=== PATIENT | female | born 1980 | race Caucasian/White ===

== ENCOUNTER 2018-10-18 08:54 | Inpatient (IN) | payer OTHER, BC, MEDICAID ==
[~2018-10-18] VITALS: Ht 165.1 cm; Wt 103.4 kg
[2018-10-18] MEDS ORDERED: QUET200T PO (09:29)
[2018-10-18] MEDS ORDERED: LORA1TAB3 PO (09:29)
[2018-10-18] MEDS ORDERED: HALO5TAB2 PO (09:29)
[2018-10-18 09:35] LABS: EOSINOPHILS % (AUTO) 1.4 % (1.0-6.0); HEMATOCRIT 35.2 % (36-46); HEMOGLOBIN 11.6 g/dL (12.0-16.0); LYMPHOCYTES # (AUTO) 0.8 K/uL (1.0-4.8); LYMPHOCYTES % (AUTO) 16.9 % (22.0-44.0); MEAN CORPUSCULAR HEMOGLOBIN 27.9 pg (26.0-34.0); MEAN CORPUSCULAR HGB CONC 32.9 G/dL (31.0-37.0); MEAN CORPUSCULAR VOLUME 85 fL (80-100); MONOCYTES # (AUTO) 0.4 K/uL (0.1-1.0); MONOCYTES % (AUTO) 7.5 % (2.0-9.0); NEUTROPHILS # (AUTO) 3.6 K/uL (1.8-7.7); NEUTROPHILS % (AUTO) 73.2 % (40.0-70.0); PLATELET COUNT (AUTO) 313 K/uL (150-450); RED BLOOD CELL COUNT(AUTO) 4.15 MIL/uL (4.00-5.20)
[2018-10-18 09:46] LABS: ANION GAP 7 mmol/L (8-16); CALCIUM, TOTAL 8.5 mg/dL (8.8-10.5); CARBON DIOXIDE 29 mmol/L (22-29); CHLORIDE 102 mmol/L (98-107); CREATININE 1.15 mg/dL (0.60-1.30); GLOMERULAR FILTR. RATE CALC 53 mL/min (>60); GLUCOSE,RANDOM 73 mg/dL (70-110); POTASSIUM 3.7 mmol/L (3.5-5.1); SODIUM SERUM 138 mmol/L (136-145); UREA NITROGEN, BLOOD 18 mg/dL (7-18)
[2018-10-18 09:52] LABS: ALANINE AMINOTRANSFERASE 63 U/L (12-78); ALBUMIN 3.7 g/dL (3.4-5.0); ALKALINE PHOSPHATASE 113 U/L (46-116); ASPARTATE AMINOTRANSFERASE 35 U/L (15-37); BILIRUBIN,TOTAL 0.4 mg/dL (0.1-1.0)
[2018-10-18] MEDS ORDERED: LORazepam 2 MG TABLET PO ONE (10:00)
[2018-10-18] MEDS: HALOPERIDOL 5 MG TABLET PO ONE ×2 (10:19→10:22)
[2018-10-18] MEDS ORDERED: IBUPROFEN 400 MG TABLET PO PRN ×2 (10:30→11:00)
[2018-10-18] MEDS ORDERED: ACETAMINOPHEN 325 MG TABLET PO PRN ×2 (10:30→11:00)
[2018-10-18] MEDS ORDERED: ZOLPIDEM TARTRATE 10 MG TABLET PO PRN (10:30)
[2018-10-18] MEDS ORDERED: HALOPERIDOL 5 MG TABLET PO PRN (10:30)
[2018-10-18] MEDS ORDERED: ONDANSETRON HCL 4 MG TABLET PO PRN (11:00)
[2018-10-18] MEDS ORDERED: ALBUTEROL SULFATE HFA 90 MCG/PUFF 8 GM INHALER IH PRN (11:00)
[2018-10-18] MEDS ORDERED: MAG HYDROX/AL HYDROX/SIMETH ES 30 ML SUSPENSION UDCUP PO PRN (11:00)
[2018-10-18] MEDS ORDERED: PETROLATUM,WHITE 71 GM JELLY TP PRN (11:00)
[2018-10-18] MEDS ORDERED: GuaiFENesin/D-METHORPHAN [SUGAR-FREE] 200-20MG/10 ML SYRUP UDCUP PO PRN (11:00)
[2018-10-18] MEDS ORDERED: MAGNESIUM HYDROXIDE SUSPENSION 30 ML UDCUP PO PRN (11:00)
[2018-10-18] MEDS ORDERED: DOCUSATE SODIUM 100 MG CAPSULE PO PRN (11:00)
[2018-10-18] MEDS ORDERED: LOPERAMIDE HCL 2 MG CAPSULE PO PRN (11:00)
[2018-10-18] MEDS ORDERED: NICOTINE 14 MG/24 HOUR PATCH TD PRN (11:00)
[2018-10-18] MEDS ORDERED: CloNIDine HCL 0.1 MG TABLET PO PRN (11:00)
[2018-10-18 16:08] VITALS: BP 130/82
[2018-10-18] MEDS ORDERED: QUEtiapine FUMARATE 200 MG TABLET PO ONE (17:45)
[2018-10-18] MEDS: LORazepam 2 MG TABLET PO PRN (17:49)
[2018-10-19 07:20] VITALS: BP 126/78
[2018-10-19] MEDS: GABAPENTIN 300 MG CAPSULE PO SCH ×2 (09:05→16:51)
[2018-10-19 09:11] VITALS: BP 132/73
[2018-10-19 16:56] VITALS: BP 131/81
[2018-10-19] MEDS: QUEtiapine FUMARATE 200 MG TABLET PO SCH (20:27)
[2018-10-19] MEDS: LORazepam 2 MG TABLET PO PRN (20:27)
[2018-10-20] MEDS: FERROUS SULFATE 325 MG EC TABLET PO SCH ×4 (06:28→20:30)
[2018-10-20 06:35] VITALS: BP 126/88
[2018-10-20 08:51] VITALS: BP 100/55
[2018-10-20] MEDS: GABAPENTIN 300 MG CAPSULE PO SCH ×2 (09:00→17:00)
[2018-10-20] MEDS: LORazepam 2 MG TABLET PO PRN (09:36)
[2018-10-20] MEDS ORDERED: HALOPERIDOL LACTATE 5 MG/ML VIAL ONE (16:13)
[2018-10-20] MEDS ORDERED: HALOPERIDOL LACTATE 5 MG/ML VIAL IM ONE (16:15)
[2018-10-20] MEDS ORDERED: LORazepam 2 MG/ML VIAL IM ONE (16:15)
[2018-10-20] MEDS ORDERED: DiphenhydrAMINE HCL 50 MG/ML VIAL IM ONE (16:15)
[2018-10-20 16:28] VITALS: BP 118/74
[2018-10-20] MEDS: QUEtiapine FUMARATE 200 MG TABLET PO SCH (20:30)
[2018-10-21] MEDS: FERROUS SULFATE 325 MG EC TABLET PO SCH ×4 (06:31→21:13)
[2018-10-21 08:28] VITALS: BP 121/65
[2018-10-21] MEDS: LORazepam 2 MG TABLET PO PRN (08:58)
[2018-10-21] MEDS: GABAPENTIN 300 MG CAPSULE PO SCH ×2 (09:00→16:59)
[2018-10-21 16:00] VITALS: BP 108/64
[2018-10-21] MEDS: QUEtiapine FUMARATE 200 MG TABLET PO SCH (21:13)
[2018-10-22] MEDS: FERROUS SULFATE 325 MG EC TABLET PO SCH ×4 (06:46→20:22)
[2018-10-22] MEDS: GABAPENTIN 300 MG CAPSULE PO SCH ×2 (09:00→17:00)
[2018-10-22] MEDS: LORazepam 2 MG TABLET PO PRN ×2 (10:17→17:03)
[2018-10-22] MEDS: QUEtiapine FUMARATE 200 MG TABLET PO SCH (20:17)
[2018-10-23 00:06] VITALS: BP 105/58
[2018-10-23] MEDS: FERROUS SULFATE 325 MG EC TABLET PO SCH ×2 (06:39→12:00)
[2018-10-23] MEDS: GABAPENTIN 300 MG CAPSULE PO SCH (08:44)
[2018-10-23] MEDS ORDERED: TUBERCULIN, PURIFIED PROTEIN DERIVATIVE 5 TU/0.1 ML SYG ID ONE (10:15)
[2018-10-23] MEDS ORDERED: QUET200T PO (10:57)
[2018-10-23] MEDS ORDERED: FERR-89 PO ×2 (10:58→10:59)
== END 2018-10-23 12:45 | disposition home or self-care (01) | DRG 885 ==
LOC: EMS 08:57 → B3A 10:45
PROVIDERS: ADMIT Psychiatry & Neurology Psychiatry; ATTEND Psychiatry & Neurology Psychiatry
DX: F25.0 Schizoaffective disorder, bipolar type (principal); R45.851 Suicidal ideations; Z59.0 Homelessness; I10 Essential (primary) hypertension; G47.00 Insomnia, unspecified; F41.9 Anxiety disorder, unspecified; F15.90 Other stimulant use, unspecified, uncomplicated; D64.9 Anemia, unspecified; Z72.89 Other problems related to lifestyle
CPT/HCPCS: 83036; G0480; J1200; J1630; J2060

== ENCOUNTER 2019-01-13 16:29 | Emergency (ER) | payer OTHER, BC, MEDICAID ==
[~2019-01-13 16:29] MED LIST: FERR-89 PO; QUET200T PO
[2019-01-13 19:20] LABS: APPEARANCE,URINE CLEAR (CLEAR); BILIRUBIN,URINE NEGATIVE (NEGATIVE); GLUCOSE, URINE (UA) NEGATIVE (NEGATIVE); KETONES,URINE NEGATIVE (NEGATIVE); LEUKOCYTE ESTERASE ,URINE NEGATIVE (NEGATIVE); NITRATE,URINE NEGATIVE (NEGATIVE); OCCULT BLOOD,URINE NEGATIVE (NEGATIVE); PROTEIN,URINE NEGATIVE (NEGATIVE); UROBILINOGEN,URINE 0.2 mg/dL (<=1.0)
[2019-01-13 19:24] LABS: BASOPHILS % (AUTO) 0.4 % (0.0-2.0); EOSINOPHILS % (AUTO) 0.2 % (1.0-6.0); HEMATOCRIT 35.3 % (36-46); HEMOGLOBIN 11.3 g/dL (12.0-16.0); LYMPHOCYTES # (AUTO) 2.2 K/uL (1.0-4.8); LYMPHOCYTES % (AUTO) 31.4 % (22.0-44.0); MEAN CORPUSCULAR HEMOGLOBIN 26.9 pg (26.0-34.0); MEAN CORPUSCULAR HGB CONC 32.1 G/dL (31.0-37.0); MEAN CORPUSCULAR VOLUME 84 fL (80-100); MONOCYTES # (AUTO) 0.3 K/uL (0.1-1.0); MONOCYTES % (AUTO) 4.4 % (2.0-9.0); NEUTROPHILS # (AUTO) 4.4 K/uL (1.8-7.7); NEUTROPHILS % (AUTO) 63.6 % (40.0-70.0); PLATELET COUNT (AUTO) 313 K/uL (150-450); RED BLOOD CELL COUNT(AUTO) 4.21 MIL/uL (4.00-5.20); RED CELL DISTRIBUTION WIDTH 17.3 % (11.5-14.5)
[2019-01-13 19:25] LABS: AMPHET/METH SCREEN,URINE POSITIVE (NEGATIVE); BARBITURATE SCREEN, URINE NEGATIVE (NEGATIVE); BENZODIAZEPINES SCREEN,URINE NEGATIVE (NEGATIVE); CANNABINOID SCREEN,URINE NEGATIVE (NEGATIVE); COCAINE SCREEN,URINE NEGATIVE (NEGATIVE); METHADONE SCREEN, URINE NEGATIVE (NEGATIVE); OPIATE SCREEN,URINE NEGATIVE (NEGATIVE)
[2019-01-13 19:26] LABS: PHENCYCLIDINE SCREEN,URINE NEGATIVE (NEGATIVE)
[2019-01-13 19:57] LABS: CALCIUM, TOTAL 8.6 mg/dL (8.8-10.5); CREATININE 1.08 mg/dL (0.60-1.30); POTASSIUM 4.4 mmol/L (3.5-5.1)
[2019-01-13 20:05] LABS: ALBUMIN 3.6 g/dL (3.4-5.0); BILIRUBIN,TOTAL 0.2 mg/dL (0.1-1.0); TOTAL PROTEIN, SERUM 7.8 g/dL (6.4-8.2)
== END 2019-01-13 21:30 | disposition left against medical advice (07) ==
LOC: EMS 16:30
DX: Z00.8 Encounter for other general examination (principal); Z53.21 Procedure and treatment not carried out due to patient leaving prior to being seen by health care provider
CPT/HCPCS: 36415; 80053; 80307; 81003; 85025; G0480

== ENCOUNTER 2019-05-24 22:10 | Inpatient (IN) | payer OTHER, MEDICAID ==
[~2019-05-24] VITALS: Ht 172.7 cm; Wt 88.9 kg
[2019-05-24] MEDS ORDERED: LORA-192 PO (22:39)
[2019-05-24] MEDS ORDERED: QUET50TA PO (22:39)
[2019-05-24 22:48] LABS: BASOPHILS % (AUTO) 0.7 % (0.0-2.0); EOSINOPHILS % (AUTO) 0.8 % (1.0-6.0); HEMATOCRIT 34.7 % (36-46); HEMOGLOBIN 11.2 g/dL (12.0-16.0); LYMPHOCYTES # (AUTO) 1.2 K/uL (1.0-4.8); LYMPHOCYTES % (AUTO) 27.8 % (22.0-44.0); MEAN CORPUSCULAR HEMOGLOBIN 28.3 pg (26.0-34.0); MEAN CORPUSCULAR HGB CONC 32.2 G/dL (31.0-37.0); MEAN CORPUSCULAR VOLUME 88 fL (80-100); MONOCYTES # (AUTO) 0.3 K/uL (0.1-1.0); MONOCYTES % (AUTO) 7.9 % (2.0-9.0); NEUTROPHILS # (AUTO) 2.7 K/uL (1.8-7.7); NEUTROPHILS % (AUTO) 62.8 % (40.0-70.0); PLATELET COUNT (AUTO) 275 K/uL (150-450); RED BLOOD CELL COUNT(AUTO) 3.95 MIL/uL (4.00-5.20); RED CELL DISTRIBUTION WIDTH 17.3 % (11.5-14.5)
[2019-05-24 23:00] LABS: ANION GAP 9 mmol/L (8-16); CALCIUM, TOTAL 9.5 mg/dL (8.8-10.5); CARBON DIOXIDE 25 mmol/L (22-29); CHLORIDE 103 mmol/L (98-107); CREATININE 1.27 mg/dL (0.60-1.30); GLOMERULAR FILTR. RATE CALC 47 mL/min (>60); GLUCOSE,RANDOM 93 mg/dL (70-110); POTASSIUM 4.4 mmol/L (3.5-5.1); SODIUM SERUM 137 mmol/L (136-145); UREA NITROGEN, BLOOD 26 mg/dL (7-18)
[2019-05-24 23:07] LABS: AMPHET/METH SCREEN,URINE POSITIVE (NEGATIVE); BARBITURATE SCREEN, URINE NEGATIVE (NEGATIVE); BENZODIAZEPINES SCREEN,URINE NEGATIVE (NEGATIVE); CANNABINOID SCREEN,URINE NEGATIVE (NEGATIVE); COCAINE SCREEN,URINE NEGATIVE (NEGATIVE); METHADONE SCREEN, URINE NEGATIVE (NEGATIVE); OPIATE SCREEN,URINE NEGATIVE (NEGATIVE)
[2019-05-24 23:14] LABS: PHENCYCLIDINE SCREEN,URINE NEGATIVE (NEGATIVE)
[2019-05-24 23:14] LABS: ALANINE AMINOTRANSFERASE 23 U/L (12-78); ALBUMIN 3.7 g/dL (3.4-5.0); ALKALINE PHOSPHATASE 65 U/L (46-116); ASPARTATE AMINOTRANSFERASE 22 U/L (15-37); BILIRUBIN,TOTAL 0.2 mg/dL (0.1-1.0); HCG,QUANTITATIVE < 1 mIU/mL (0-6)
[2019-05-24] MEDS ORDERED: LORazepam 1 MG TABLET PO ONE (23:45)
[2019-05-24] MEDS ORDERED: QUEtiapine FUMARATE 200 MG TABLET PO ONE (23:45)
[2019-05-25] VITALS (7 sets, daily range): BP systolic 103–120; BP diastolic 61–66
[2019-05-25] MEDS ORDERED: QUEtiapine FUMARATE 100 MG TABLET PO ONE (00:15)
[2019-05-25] MEDS ORDERED: ZOLPIDEM TARTRATE 10 MG TABLET PO PRN (02:00)
[2019-05-25] MEDS: LORazepam 2 MG TABLET PO PRN (10:55)
[2019-05-25] MEDS: QUEtiapine FUMARATE 200 MG TABLET PO SCH ×2 (13:01→20:40)
[2019-05-26 00:30] VITALS: BP 118/72
[2019-05-26 07:11] LABS: CHOL/HDL RATIO 3.5 (3.9-5.7)
[2019-05-26] MEDS: QUEtiapine FUMARATE 200 MG TABLET PO SCH ×2 (08:20→20:26)
[2019-05-26 08:43] VITALS: BP 118/66
[2019-05-26] MEDS: LORazepam 2 MG TABLET PO PRN (09:41)
[2019-05-26] MEDS ORDERED: HydrOXYzine PAMOATE 50 MG CAPSULE PO PRN (10:15)
[2019-05-26] MEDS ORDERED: MAG HYDROX/AL HYDROX/SIMETH ES 30 ML SUSPENSION UDCUP PO PRN (10:15)
[2019-05-26] MEDS ORDERED: IBUPROFEN 600 MG TABLET PO PRN (10:15)
[2019-05-26] MEDS ORDERED: LOPERAMIDE HCL 2 MG CAPSULE PO PRN (10:15)
[2019-05-26 13:00] VITALS: BP 106/61
[2019-05-26] MEDS: HALOPERIDOL 5 MG TABLET PO PRN (16:43)
[2019-05-27 02:00] VITALS: BP 110/60
[2019-05-27 05:25] VITALS: BP 110/60
[2019-05-27 08:14] VITALS: BP 101/64
[2019-05-27] MEDS: QUEtiapine FUMARATE 200 MG TABLET PO SCH ×2 (08:28→20:08)
[2019-05-27 10:20] VITALS: BP 82/52
[2019-05-27] MEDS ORDERED: ONDANSETRON HCL 4 MG TABLET PO PRN (11:15)
[2019-05-27 14:24] VITALS: BP 100/56
[2019-05-28 01:53] VITALS: BP 106/63
[2019-05-28 08:30] VITALS: BP_SYST 101; BP_SYST 108; BP_DIAS 54; BP_DIAS 89
[2019-05-28] MEDS: QUEtiapine FUMARATE 200 MG TABLET PO SCH ×2 (08:48→20:18)
[2019-05-28 09:00] VITALS: BP 101/89
[2019-05-28 17:18] VITALS: BP 99/60
[2019-05-28 17:20] VITALS: BP 99/68
[2019-05-28 18:46] VITALS: BP 124/75
[2019-05-28] MEDS: HALOPERIDOL 5 MG TABLET PO PRN (18:46)
[2019-05-28] MEDS: LORazepam 2 MG TABLET PO PRN (18:46)
[2019-05-29 00:11] VITALS: BP 109/79
[2019-05-29 03:05] VITALS: BP 110/68
[2019-05-29 08:00] VITALS: BP 99/59
[2019-05-29] MEDS: QUEtiapine FUMARATE 200 MG TABLET PO SCH ×2 (08:29→20:28)
[2019-05-29 16:54] VITALS: BP_SYST 101; BP_DIAS 54; BP_DIAS 60
[2019-05-29 18:22] VITALS: BP 118/69
[2019-05-29] MEDS: LORazepam 2 MG TABLET PO PRN (18:26)
[2019-05-29] MEDS: HALOPERIDOL 5 MG TABLET PO PRN (18:26)
[2019-05-30 06:00] VITALS: BP 112/65
[2019-05-30 08:26] VITALS: BP 90/64
[2019-05-30 08:27] VITALS: BP 90/64
[2019-05-30] MEDS: QUEtiapine FUMARATE 200 MG TABLET PO SCH (08:34)
[2019-05-30] MEDS: LORazepam 2 MG TABLET PO PRN (16:04)
[2019-05-30 17:31] VITALS: BP 113/61
[2019-05-30 17:39] VITALS: BP 101/61
[2019-05-30] MEDS: QUEtiapine FUMARATE 100 MG TABLET PO SCH (20:26)
[2019-05-31 03:45] VITALS: BP 118/72
[2019-05-31 03:50] VITALS: BP 118/72
[2019-05-31] MEDS: QUEtiapine FUMARATE 100 MG TABLET PO SCH (09:00)
[2019-05-31] MEDS ORDERED: QUET100T33 PO (10:15)
== END 2019-05-31 11:10 | disposition home or self-care (01) | DRG 885 ==
LOC: EMS 22:11 → B2X 05-25 02:26 → B2S 05-26 01:21
PROVIDERS: ADMIT Psychiatry & Neurology Psychiatry; ATTEND Psychiatry & Neurology Psychiatry
DX: F25.0 Schizoaffective disorder, bipolar type (principal); F11.20 Opioid dependence, uncomplicated; R45.851 Suicidal ideations; D72.819 Decreased white blood cell count, unspecified; D64.9 Anemia, unspecified; F15.10 Other stimulant abuse, uncomplicated; F43.10 Post-traumatic stress disorder, unspecified; I10 Essential (primary) hypertension; F10.10 Alcohol abuse, uncomplicated; Z79.899 Other long term (current) drug therapy
CPT/HCPCS: G0480

== ENCOUNTER 2019-06-02 10:27 | Inpatient (IN) | payer OTHER, MEDICAID ==
[~2019-06-02] VITALS: Ht 165.1 cm; Wt 86.6 kg
[~2019-06-02 10:27] MED LIST changes: -FERR-89 PO; +QUET100T33 PO; -QUET200T PO; +QUET50TA PO
[2019-06-02 10:54] LABS: BASOPHILS % (AUTO) 1.1 % (0.0-2.0); EOSINOPHILS % (AUTO) 1.3 % (1.0-6.0); HEMATOCRIT 36.8 % (36-46); HEMOGLOBIN 11.9 g/dL (12.0-16.0); LYMPHOCYTES # (AUTO) 1.4 K/uL (1.0-4.8); LYMPHOCYTES % (AUTO) 32.3 % (22.0-44.0); MEAN CORPUSCULAR HEMOGLOBIN 28.3 pg (26.0-34.0); MEAN CORPUSCULAR HGB CONC 32.4 G/dL (31.0-37.0); MEAN CORPUSCULAR VOLUME 87 fL (80-100); MONOCYTES # (AUTO) 0.4 K/uL (0.1-1.0); MONOCYTES % (AUTO) 10.5 % (2.0-9.0); NEUTROPHILS # (AUTO) 2.3 K/uL (1.8-7.7); NEUTROPHILS % (AUTO) 54.8 % (40.0-70.0); PLATELET COUNT (AUTO) 318 K/uL (150-450); RED BLOOD CELL COUNT(AUTO) 4.21 MIL/uL (4.00-5.20)
[2019-06-02 11:02] LABS: ANION GAP 10 mmol/L (8-16); CARBON DIOXIDE 27 mmol/L (22-29); CHLORIDE 101 mmol/L (98-107); CREATININE 1.16 mg/dL (0.60-1.30); GLOMERULAR FILTR. RATE CALC 53 mL/min (>60); GLUCOSE,RANDOM 71 mg/dL (70-110); POTASSIUM 3.5 mmol/L (3.5-5.1); SODIUM SERUM 138 mmol/L (136-145); UREA NITROGEN, BLOOD 26 mg/dL (7-18)
[2019-06-02 11:08] LABS: ALANINE AMINOTRANSFERASE 30 U/L (12-78); ALBUMIN 4.2 g/dL (3.4-5.0); ALKALINE PHOSPHATASE 94 U/L (46-116); ASPARTATE AMINOTRANSFERASE 30 U/L (15-37); BILIRUBIN,TOTAL 1.1 mg/dL (0.1-1.0); TOTAL PROTEIN, SERUM 8.7 g/dL (6.4-8.2)
[2019-06-02] MEDS ORDERED: ZOLPIDEM TARTRATE 10 MG TABLET PO PRN (11:45)
[2019-06-02] MEDS ORDERED: IBUPROFEN 400 MG TABLET PO PRN ×2 (12:00→14:45)
[2019-06-02] MEDS ORDERED: ACETAMINOPHEN 325 MG TABLET PO PRN ×2 (12:00→14:45)
[2019-06-02 12:09] LABS: APPEARANCE,URINE TURBID (CLEAR); GLUCOSE, URINE (UA) NEGATIVE (NEGATIVE); KETONES,URINE 15 mg/dL (NEGATIVE); LEUKOCYTE ESTERASE ,URINE MODERATE (NEGATIVE); NITRATE,URINE POSITIVE (NEGATIVE); OCCULT BLOOD,URINE LARGE (NEGATIVE); PROTEIN,URINE SEE CONFIRM (NEGATIVE)
[2019-06-02 12:10] LABS: BILIRUBIN,URINE PRELIM. POSITIVE (NEGATIVE)
[2019-06-02 12:12] LABS: AMPHET/METH SCREEN,URINE POSITIVE (NEGATIVE); BARBITURATE SCREEN, URINE NEGATIVE (NEGATIVE); BENZODIAZEPINES SCREEN,URINE NEGATIVE (NEGATIVE); CANNABINOID SCREEN,URINE NEGATIVE (NEGATIVE); COCAINE SCREEN,URINE NEGATIVE (NEGATIVE); METHADONE SCREEN, URINE NEGATIVE (NEGATIVE); OPIATE SCREEN,URINE NEGATIVE (NEGATIVE); RBC,URINE >100 /HPF (0-2); SULFOSALICYLIC ACID,URINE 3+ (Negative)
[2019-06-02 12:13] LABS: BACTERIA,URINE Few /HPF (None Seen); PHENCYCLIDINE SCREEN,URINE NEGATIVE (NEGATIVE); SQUAMOUS EPITHELIAL CELL,UR Moderate /LPF (None Seen)
[2019-06-02] MEDS: LORazepam 2 MG TABLET PO PRN ×2 (12:37→22:49)
[2019-06-02] MEDS: HALOPERIDOL 5 MG TABLET PO PRN (12:37)
[2019-06-02 14:10] VITALS: BP 116/80
[2019-06-02] MEDS ORDERED: MAG HYDROX/AL HYDROX/SIMETH ES 30 ML SUSPENSION UDCUP PO PRN (14:45)
[2019-06-02] MEDS ORDERED: NICOTINE 14 MG/24 HOUR PATCH TD PRN (14:45)
[2019-06-02] MEDS ORDERED: DOCUSATE SODIUM 100 MG CAPSULE PO PRN (14:45)
[2019-06-02] MEDS ORDERED: ONDANSETRON HCL 4 MG TABLET PO PRN (14:45)
[2019-06-02] MEDS ORDERED: GuaiFENesin/D-METHORPHAN [SUGAR-FREE] 200-20MG/10 ML SYRUP UDCUP PO PRN (14:45)
[2019-06-02] MEDS ORDERED: LOPERAMIDE HCL 2 MG CAPSULE PO PRN (14:45)
[2019-06-02] MEDS ORDERED: MAGNESIUM HYDROXIDE SUSPENSION 30 ML UDCUP PO PRN (14:45)
[2019-06-02] MEDS ORDERED: ALBUTEROL SULFATE HFA 90 MCG/PUFF 8 GM INHALER IH PRN (14:45)
[2019-06-02] MEDS ORDERED: CloNIDine HCL 0.1 MG TABLET PO PRN (14:45)
[2019-06-02] MEDS ORDERED: PETROLATUM,WHITE 28 GM JELLY TP PRN (14:45)
[2019-06-02 16:28] VITALS: BP 107/69
[2019-06-03 06:38] VITALS: BP 98/76
[2019-06-03 07:50] LABS: BASOPHILS % (AUTO) 1.4 % (0.0-2.0); EOSINOPHILS % (AUTO) 3.6 % (1.0-6.0); HEMATOCRIT 34.9 % (36-46); HEMOGLOBIN 11.1 g/dL (12.0-16.0); LYMPHOCYTES # (AUTO) 1.3 K/uL (1.0-4.8); LYMPHOCYTES % (AUTO) 40.6 % (22.0-44.0); MEAN CORPUSCULAR HEMOGLOBIN 28.1 pg (26.0-34.0); MEAN CORPUSCULAR HGB CONC 31.9 G/dL (31.0-37.0); MEAN CORPUSCULAR VOLUME 88 fL (80-100); MONOCYTES # (AUTO) 0.4 K/uL (0.1-1.0); MONOCYTES % (AUTO) 11.4 % (2.0-9.0); NEUTROPHILS # (AUTO) 1.4 K/uL (1.8-7.7); PLATELET COUNT (AUTO) 285 K/uL (150-450); RED BLOOD CELL COUNT(AUTO) 3.96 MIL/uL (4.00-5.20); RED CELL DISTRIBUTION WIDTH 17.3 % (11.5-14.5)
[2019-06-03 08:03] LABS: HEMOGLOBIN A1C 5.6 % (4.5-6.2)
[2019-06-03 08:20] LABS: ALANINE AMINOTRANSFERASE 25 U/L (12-78); ALBUMIN 3.1 g/dL (3.4-5.0); ALKALINE PHOSPHATASE 69 U/L (46-116); ANION GAP 8 mmol/L (8-16); ASPARTATE AMINOTRANSFERASE 21 U/L (15-37); BILIRUBIN,TOTAL 0.5 mg/dL (0.1-1.0); CALCIUM, TOTAL 8.4 mg/dL (8.8-10.5); CARBON DIOXIDE 25 mmol/L (22-29); CHLORIDE 105 mmol/L (98-107); CHOL/HDL RATIO 2.7 (3.9-5.7); CHOLESTEROL 139 mg/dL (131-200); CREATININE 0.92 mg/dL (0.60-1.30); GLOMERULAR FILTR. RATE CALC > 60 mL/min (>60); GLUCOSE,RANDOM 79 mg/dL (70-110); HDL CHOLESTEROL 52 mg/dL (40-60); LDL CHOL (CALC.) 80 mg/dL (0-130); POTASSIUM 4.6 mmol/L (3.5-5.1); SODIUM SERUM 138 mmol/L (136-145); THYROID STIMULATING HORMONE 1.38 uIU/mL (0.36-3.74); TRIGLYCERIDES 36 mg/dL (15-150); UREA NITROGEN, BLOOD 28 mg/dL (7-18)
[2019-06-03 08:43] VITALS: BP 113/73
[2019-06-03] MEDS: CIPROFLOXACIN HCL 500 MG TABLET PO SCH ×2 (08:58→16:50)
[2019-06-03] MEDS: NICOTINE 14 MG/24 HOUR PATCH TD SCH (08:59)
[2019-06-03] MEDS: CEPHALEXIN MONOHYDRATE 250 MG CAPSULE PO SCH ×3 (09:00→16:51)
[2019-06-03] MEDS: QUEtiapine FUMARATE 100 MG TABLET PO SCH ×2 (10:49→20:32)
[2019-06-03 16:35] VITALS: BP 100/60
[2019-06-03] MEDS: HALOPERIDOL 5 MG TABLET PO PRN (16:50)
[2019-06-04 03:36] VITALS: BP 106/70
[2019-06-04] MEDS: QUEtiapine FUMARATE 100 MG TABLET PO SCH ×2 (09:13→21:24)
[2019-06-04] MEDS: NICOTINE 14 MG/24 HOUR PATCH TD SCH (09:13)
[2019-06-04] MEDS: CIPROFLOXACIN HCL 500 MG TABLET PO SCH ×2 (09:13→19:21)
[2019-06-04] MEDS: CEPHALEXIN MONOHYDRATE 250 MG CAPSULE PO SCH ×3 (09:13→19:21)
[2019-06-04 16:00] VITALS: BP 109/67
[2019-06-05 06:21] VITALS: BP 116/70
[2019-06-05] MEDS: CEPHALEXIN MONOHYDRATE 250 MG CAPSULE PO SCH ×3 (09:00→17:00)
[2019-06-05] MEDS: QUEtiapine FUMARATE 100 MG TABLET PO SCH ×2 (09:35→21:23)
[2019-06-05] MEDS: CIPROFLOXACIN HCL 500 MG TABLET PO SCH ×2 (09:36→17:00)
[2019-06-05] MEDS: NICOTINE 14 MG/24 HOUR PATCH TD SCH (09:38)
[2019-06-05] MEDS: LORazepam 2 MG TABLET PO PRN ×2 (10:04→17:00)
[2019-06-05 16:12] VITALS: BP 140/70
[2019-06-05] MEDS: HALOPERIDOL 5 MG TABLET PO PRN (17:00)
[2019-06-06 04:10] VITALS: BP 130/81
[2019-06-06] MEDS: LORazepam 2 MG TABLET PO PRN ×3 (04:22→17:02)
[2019-06-06 08:09] LABS: BASOPHILS % (AUTO) 1.2 % (0.0-2.0); EOSINOPHILS % (AUTO) 2.4 % (1.0-6.0); LYMPHOCYTES # (AUTO) 1.3 K/uL (1.0-4.8); LYMPHOCYTES % (AUTO) 40.2 % (22.0-44.0); MEAN CORPUSCULAR HEMOGLOBIN 28.7 pg (26.0-34.0); MEAN CORPUSCULAR HGB CONC 32.3 G/dL (31.0-37.0); MEAN CORPUSCULAR VOLUME 89 fL (80-100); MONOCYTES # (AUTO) 0.4 K/uL (0.1-1.0); MONOCYTES % (AUTO) 11.3 % (2.0-9.0); NEUTROPHILS # (AUTO) 1.5 K/uL (1.8-7.7); NEUTROPHILS % (AUTO) 44.9 % (40.0-70.0); PLATELET COUNT (AUTO) 269 K/uL (150-450); RED BLOOD CELL COUNT(AUTO) 3.84 MIL/uL (4.00-5.20); RED CELL DISTRIBUTION WIDTH 16.6 % (11.5-14.5)
[2019-06-06 08:28] VITALS: BP 105/63
[2019-06-06] MEDS: NICOTINE 14 MG/24 HOUR PATCH TD SCH ×2 (09:00→09:18)
[2019-06-06] MEDS: HALOPERIDOL 5 MG TABLET PO PRN ×2 (09:17→17:02)
[2019-06-06] MEDS: CIPROFLOXACIN HCL 500 MG TABLET PO SCH (09:18)
[2019-06-06] MEDS: QUEtiapine FUMARATE 100 MG TABLET PO SCH (09:18)
[2019-06-06] MEDS: CEPHALEXIN MONOHYDRATE 250 MG CAPSULE PO SCH ×3 (09:18→17:03)
[2019-06-06] MEDS: FERROUS SULFATE 325 MG EC TABLET PO SCH (17:02)
[2019-06-06 20:26] VITALS: BP 126/76
[2019-06-06] MEDS: QUEtiapine FUMARATE 200 MG TABLET PO SCH (20:29)
[2019-06-07 00:36] VITALS: BP 104/63
[2019-06-07] MEDS: FERROUS SULFATE 325 MG EC TABLET PO SCH ×2 (06:42→13:34)
[2019-06-07 08:33] VITALS: BP 104/64
[2019-06-07] MEDS: NICOTINE 14 MG/24 HOUR PATCH TD SCH (09:00)
[2019-06-07] MEDS ORDERED: FOLIC ACID 1 MG TABLET PO SCH (09:00)
[2019-06-07] MEDS: CEPHALEXIN MONOHYDRATE 250 MG CAPSULE PO SCH (09:09)
[2019-06-07] MEDS: QUEtiapine FUMARATE 200 MG TABLET PO SCH (09:09)
[2019-06-07] MEDS: LORazepam 2 MG TABLET PO PRN (09:14)
[2019-06-07] MEDS ORDERED: FOLI1 PO (09:55)
[2019-06-07] MEDS ORDERED: QUET200T PO (09:55)
[2019-06-07] MEDS ORDERED: FERR-89 PO (09:55)
== END 2019-06-07 13:30 | disposition home or self-care (01) | DRG 885 ==
LOC: EMS 10:27 → B2X 15:04
PROVIDERS: ADMIT Psychiatry & Neurology Psychiatry; ATTEND Psychiatry & Neurology Psychiatry
DX: F25.0 Schizoaffective disorder, bipolar type (principal); N39.0 Urinary tract infection, site not specified; R45.851 Suicidal ideations; D64.9 Anemia, unspecified; F10.10 Alcohol abuse, uncomplicated; I10 Essential (primary) hypertension; F17.210 Nicotine dependence, cigarettes, uncomplicated; R31.9 Hematuria, unspecified; F15.10 Other stimulant abuse, uncomplicated; Z79.899 Other long term (current) drug therapy
CPT/HCPCS: 83036; 84443; 87086; G0480

== ENCOUNTER 2020-11-18 17:41 | Inpatient (IN) | payer OTHER, MEDICAID ==
[~2020-11-18] VITALS: Ht 165.1 cm; Wt 87.3 kg
[~2020-11-18 17:41] MED LIST changes: +FERR-89 PO; +FOLI-130 PO; -QUET100T33 PO; +QUET200T PO; -QUET50TA PO
[2020-11-19 00:15] VITALS: BP 140/98
[2020-11-19] MEDS: ZOLPIDEM TARTRATE 10 MG TABLET PO PRN ×2 (00:30→20:48)
[2020-11-19] MEDS: LORazepam 2 MG TABLET PO PRN ×3 (00:30→17:05)
[2020-11-19] MEDS ORDERED: PNEUMOCOCCAL VACCINE POLYVALENT 0.5 ML VIAL [PPSV23] IM ONE (01:00)
[2020-11-19] MEDS ORDERED: INFLUENZA VIRUS VACCINE QVS 2020-21 (6MO+)/PF 60 MCG/0.5 ML SYRINGE IM ONE (01:00)
[2020-11-19] MEDS ORDERED: NICOTINE 14 MG/24 HOUR PATCH TD PRN (08:15)
[2020-11-19] MEDS ORDERED: MAGNESIUM HYDROXIDE SUSPENSION 30 ML UDCUP PO PRN (08:15)
[2020-11-19] MEDS ORDERED: ACETAMINOPHEN 325 MG TABLET PO PRN (08:15)
[2020-11-19] MEDS ORDERED: LOPERAMIDE HCL 2 MG CAPSULE PO PRN (08:15)
[2020-11-19] MEDS ORDERED: PETROLATUM,WHITE 28 GM JELLY TP PRN (08:15)
[2020-11-19] MEDS ORDERED: MAG HYDROX/AL HYDROX/SIMETH ES 30 ML SUSPENSION UDCUP PO PRN (08:15)
[2020-11-19] MEDS ORDERED: GuaiFENesin/D-METHORPHAN [SUGAR-FREE] 200-20MG/10 ML SYRUP UDCUP PO PRN (08:15)
[2020-11-19] MEDS ORDERED: DOCUSATE SODIUM 100 MG CAPSULE PO PRN (08:15)
[2020-11-19] MEDS ORDERED: ALBUTEROL SULFATE HFA 90 MCG/PUFF 8 GM INHALER IH PRN (08:15)
[2020-11-19] MEDS ORDERED: IBUPROFEN 400 MG TABLET PO PRN (08:15)
[2020-11-19] MEDS ORDERED: ONDANSETRON HCL 4 MG TABLET PO PRN (08:15)
[2020-11-19] MEDS ORDERED: CloNIDine HCL 0.1 MG TABLET PO PRN (08:15)
[2020-11-19 08:27] VITALS: BP 116/62
[2020-11-19] MEDS: FOLIC ACID 1 MG TABLET PO SCH (09:29)
[2020-11-19] MEDS: FERROUS SULFATE 325 MG EC TABLET PO SCH ×3 (12:21→20:44)
[2020-11-19 16:18] VITALS: BP 128/71
[2020-11-20 05:29] VITALS: BP 125/67
[2020-11-20] MEDS: FERROUS SULFATE 325 MG EC TABLET PO SCH ×4 (06:42→20:05)
[2020-11-20] MEDS: LORazepam 2 MG TABLET PO PRN (07:05)
[2020-11-20] MEDS: HALOPERIDOL 5 MG TABLET PO PRN (07:05)
[2020-11-20] MEDS: FOLIC ACID 1 MG TABLET PO SCH (08:38)
[2020-11-20 08:45] VITALS: BP 119/74
[2020-11-20 16:03] VITALS: BP 110/60
[2020-11-20] MEDS: QUEtiapine FUMARATE 200 MG TABLET PO SCH (20:06)
[2020-11-21 06:28] VITALS: BP 125/68
[2020-11-21] MEDS: FERROUS SULFATE 325 MG EC TABLET PO SCH ×4 (06:45→20:03)
[2020-11-21] MEDS: FOLIC ACID 1 MG TABLET PO SCH (08:40)
[2020-11-21] MEDS: QUEtiapine FUMARATE 200 MG TABLET PO SCH ×2 (08:40→20:03)
[2020-11-21 12:54] VITALS: BP 127/67
[2020-11-21 16:24] VITALS: BP 124/70
[2020-11-21] MEDS: HALOPERIDOL 5 MG TABLET PO PRN (16:35)
[2020-11-21] MEDS: LORazepam 2 MG TABLET PO PRN (16:35)
[2020-11-22 00:28] VITALS: BP 122/73
[2020-11-22] MEDS: FERROUS SULFATE 325 MG EC TABLET PO SCH ×4 (06:44→20:11)
[2020-11-22 09:21] VITALS: BP 112/71
[2020-11-22] MEDS: QUEtiapine FUMARATE 200 MG TABLET PO SCH ×2 (09:41→20:11)
[2020-11-22] MEDS: FOLIC ACID 1 MG TABLET PO SCH (09:41)
[2020-11-22] MEDS: LORazepam 2 MG TABLET PO PRN (09:42)
[2020-11-22 16:11] VITALS: BP 118/77
[2020-11-23 00:37] VITALS: BP 110/72
[2020-11-23] MEDS: FERROUS SULFATE 325 MG EC TABLET PO SCH ×4 (07:03→20:28)
[2020-11-23 08:15] VITALS: BP 120/76
[2020-11-23] MEDS: QUEtiapine FUMARATE 200 MG TABLET PO SCH ×2 (09:00→20:28)
[2020-11-23] MEDS: ESCITALOPRAM OXALATE 10 MG TABLET PO SCH (09:00)
[2020-11-23] MEDS: FOLIC ACID 1 MG TABLET PO SCH (09:00)
[2020-11-23] MEDS: HALOPERIDOL 5 MG TABLET PO PRN (15:38)
[2020-11-23] MEDS: LORazepam 2 MG TABLET PO PRN (15:38)
[2020-11-23 17:32] VITALS: BP 101/64
[2020-11-24 01:10] VITALS: BP 100/68
[2020-11-24] MEDS: FERROUS SULFATE 325 MG EC TABLET PO SCH ×4 (06:40→20:54)
[2020-11-24 08:30] VITALS: BP 114/72
[2020-11-24] MEDS: LORazepam 2 MG TABLET PO PRN ×2 (08:36→16:39)
[2020-11-24] MEDS: QUEtiapine FUMARATE 200 MG TABLET PO SCH ×2 (08:36→20:54)
[2020-11-24] MEDS: FOLIC ACID 1 MG TABLET PO SCH (08:36)
[2020-11-24] MEDS: ESCITALOPRAM OXALATE 10 MG TABLET PO SCH (08:36)
[2020-11-24 16:38] VITALS: BP 105/65
[2020-11-24] MEDS: ZOLPIDEM TARTRATE 10 MG TABLET PO PRN (20:54)
[2020-11-25 02:54] VITALS: BP 112/70
[2020-11-25] MEDS: FERROUS SULFATE 325 MG EC TABLET PO SCH (06:17)
[2020-11-25 08:06] VITALS: BP 122/75
[2020-11-25] MEDS: ESCITALOPRAM OXALATE 10 MG TABLET PO SCH (08:29)
[2020-11-25] MEDS: FOLIC ACID 1 MG TABLET PO SCH (08:29)
[2020-11-25] MEDS: QUEtiapine FUMARATE 200 MG TABLET PO SCH (08:29)
[2020-11-25] MEDS: LORazepam 2 MG TABLET PO PRN (08:29)
[2020-11-25] MEDS ORDERED: ESCI-8 PO (09:20)
== END 2020-11-25 11:30 | disposition home or self-care (01) | DRG 885 ==
LOC: B3A 23:31
DX: F25.1 Schizoaffective disorder, depressive type (principal); R45.851 Suicidal ideations; F15.10 Other stimulant abuse, uncomplicated; E66.9 Obesity, unspecified; D64.9 Anemia, unspecified; I10 Essential (primary) hypertension; Z79.899 Other long term (current) drug therapy; Z91.5 Personal history of self-harm; Z68.32 Body mass index [BMI] 32.0-32.9, adult; Z28.21 Immunization not carried out because of patient refusal
CPT/HCPCS: Z7610

== ENCOUNTER 2022-04-04 22:30 | Inpatient (IN) | payer BC, MEDICAID ==
[~2022-04-04] VITALS: Ht 165.1 cm; Wt 165.0 kg
[~2022-04-04 22:30] MED LIST changes: +ESCI-8 PO; -FERR-89 PO; +FERR325T27 PO
[2022-04-05 00:35] LABS: AMPHET/METH SCREEN,URINE POSITIVE (NEGATIVE); BARBITURATE SCREEN, URINE NEGATIVE (NEGATIVE); BENZODIAZEPINES SCREEN,URINE NEGATIVE (NEGATIVE); CANNABINOID SCREEN,URINE NEGATIVE (NEGATIVE); COCAINE SCREEN,URINE NEGATIVE (NEGATIVE); METHADONE SCREEN, URINE NEGATIVE (NEGATIVE); OPIATE SCREEN,URINE NEGATIVE (NEGATIVE); PHENCYCLIDINE SCREEN,URINE NEGATIVE (NEGATIVE)
[2022-04-05 01:26] LABS: COVID AG,FIA SOURCE NASOPHARYNGEAL
[2022-04-05] MEDS ORDERED: ZOLPIDEM TARTRATE 10 MG TABLET PO PRN (02:45)
[2022-04-05] MEDS ORDERED: HALOPERIDOL 5 MG TABLET PO PRN (02:45)
[2022-04-05 05:02] LABS: APPEARANCE,URINE TURBID (CLEAR); BILIRUBIN,URINE NEGATIVE (NEGATIVE); GLUCOSE, URINE (UA) NEGATIVE (NEGATIVE); KETONES,URINE NEGATIVE (NEGATIVE); LEUKOCYTE ESTERASE ,URINE TRACE (NEGATIVE); NITRATE,URINE POSITIVE (NEGATIVE); OCCULT BLOOD,URINE NEGATIVE (NEGATIVE); PROTEIN,URINE TRACE mg/dL (NEGATIVE); SPECIFIC GRAVITIY, URINE 1.023 (1.003-1.030); UROBILINOGEN,URINE <=1.0 mg/dL (<=1.0)
[2022-04-05 05:27] LABS: AMORPHOUS SEDIMENT,UR Many /LPF (None Seen); BACTERIA,URINE Few /HPF (None Seen); RBC,URINE 0-2 /HPF (0-2); SQUAMOUS EPITHELIAL CELL,UR Few /LPF (None Seen)
[2022-04-05 06:43] VITALS: BP 150/86
[2022-04-05 08:13] VITALS: BP 113/68
[2022-04-05] MEDS: CEPHALEXIN MONOHYDRATE 500 MG CAPSULE PO SCH ×2 (09:32→16:21)
[2022-04-05] MEDS ORDERED: PERMETHRIN 5% 60 GM CREAM TP ONE (09:45)
[2022-04-05] MEDS: LORazepam 2 MG TABLET PO PRN (12:19)
[2022-04-05] MEDS ORDERED: ACETAMINOPHEN 325 MG TABLET PO PRN (12:45)
[2022-04-05] MEDS ORDERED: NICOTINE 14 MG/24 HOUR PATCH TD PRN (12:45)
[2022-04-05] MEDS ORDERED: PETROLATUM,WHITE 28 GM JELLY TP PRN (12:45)
[2022-04-05] MEDS ORDERED: LOPERAMIDE HCL 2 MG CAPSULE PO PRN (12:45)
[2022-04-05] MEDS ORDERED: DOCUSATE SODIUM 100 MG CAPSULE PO PRN (12:45)
[2022-04-05] MEDS ORDERED: MAGNESIUM HYDROXIDE SUSPENSION 30 ML UDCUP PO PRN (12:45)
[2022-04-05] MEDS ORDERED: MAG HYDROX/AL HYDROX/SIMETH ES 30 ML SUSPENSION UDCUP PO PRN (12:45)
[2022-04-05] MEDS ORDERED: GuaiFENesin/D-METHORPHAN [SUGAR-FREE] 200-20MG/10 ML SYRUP UDCUP PO PRN (12:45)
[2022-04-05] MEDS ORDERED: IBUPROFEN 400 MG TABLET PO PRN (12:45)
[2022-04-05] MEDS ORDERED: ALBUTEROL SULFATE HFA 90 MCG/PUFF 8 GM INHALER IH PRN (12:45)
[2022-04-05] MEDS ORDERED: ONDANSETRON HCL 4 MG TABLET PO PRN (12:45)
[2022-04-05] MEDS ORDERED: CloNIDine HCL 0.1 MG TABLET PO PRN (12:45)
[2022-04-05] MEDS: FERROUS SULFATE 325 MG EC TABLET PO SCH ×2 (16:18→20:09)
[2022-04-05] MEDS: ESCITALOPRAM OXALATE 10 MG TABLET PO SCH (16:27)
[2022-04-05 16:43] VITALS: BP 134/78
[2022-04-05] MEDS: QUEtiapine FUMARATE 200 MG TABLET PO SCH (20:10)
[2022-04-06 00:15] VITALS: BP 126/74
[2022-04-06] MEDS: FERROUS SULFATE 325 MG EC TABLET PO SCH ×4 (06:54→20:10)
[2022-04-06] MEDS ORDERED: PERMETHRIN 1% 60 ML LOTION TP ONE (08:00)
[2022-04-06] MEDS: FOLIC ACID 1 MG TABLET PO SCH (08:24)
[2022-04-06] MEDS: QUEtiapine FUMARATE 200 MG TABLET PO SCH ×2 (08:24→20:10)
[2022-04-06] MEDS: ESCITALOPRAM OXALATE 10 MG TABLET PO SCH (08:24)
[2022-04-06] MEDS: CEPHALEXIN MONOHYDRATE 500 MG CAPSULE PO SCH ×3 (08:24→16:56)
[2022-04-06] MEDS ORDERED: PERMETHRIN 5% 60 GM CREAM TP ONE (09:00)
[2022-04-06 09:12] VITALS: BP 102/69
[2022-04-06 16:19] VITALS: BP 138/83
[2022-04-06] MEDS: LORazepam 2 MG TABLET PO PRN (20:10)
[2022-04-07 05:54] VITALS: BP 114/66
[2022-04-07] MEDS: FERROUS SULFATE 325 MG EC TABLET PO SCH ×4 (06:55→20:26)
[2022-04-07 08:23] VITALS: BP 118/81
[2022-04-07] MEDS: FOLIC ACID 1 MG TABLET PO SCH (08:35)
[2022-04-07] MEDS: CEPHALEXIN MONOHYDRATE 500 MG CAPSULE PO SCH ×3 (08:36→17:13)
[2022-04-07] MEDS: QUEtiapine FUMARATE 200 MG TABLET PO SCH ×2 (08:36→20:26)
[2022-04-07] MEDS: LORazepam 2 MG TABLET PO PRN ×2 (08:36→17:13)
[2022-04-07] MEDS: ESCITALOPRAM OXALATE 10 MG TABLET PO SCH (08:36)
[2022-04-07 16:02] VITALS: BP 104/74
[2022-04-08 05:31] VITALS: BP 114/68
[2022-04-08] MEDS: FERROUS SULFATE 325 MG EC TABLET PO SCH ×4 (06:47→20:31)
[2022-04-08 08:06] VITALS: BP 116/72
[2022-04-08] MEDS: QUEtiapine FUMARATE 200 MG TABLET PO SCH ×2 (09:18→20:31)
[2022-04-08] MEDS: FOLIC ACID 1 MG TABLET PO SCH (09:18)
[2022-04-08] MEDS: LORazepam 2 MG TABLET PO PRN ×2 (09:18→17:03)
[2022-04-08] MEDS: ESCITALOPRAM OXALATE 10 MG TABLET PO SCH (09:18)
[2022-04-08] MEDS: CEPHALEXIN MONOHYDRATE 500 MG CAPSULE PO SCH ×3 (09:18→17:03)
[2022-04-08 16:05] VITALS: BP 98/60
[2022-04-09 00:53] VITALS: BP 108/76
[2022-04-09] MEDS: FERROUS SULFATE 325 MG EC TABLET PO SCH ×4 (06:49→20:11)
[2022-04-09 07:50] LABS: BASOPHILS % (AUTO) 1.2 % (0.0-2.0); EOSINOPHILS % (AUTO) 2.1 % (1.0-6.0); HEMATOCRIT 34.2 % (36-46); HEMOGLOBIN 11.3 g/dL (12.0-16.0); LYMPHOCYTES # (AUTO) 1.1 K/uL (1.0-4.8); MEAN CORPUSCULAR HEMOGLOBIN 28.8 pg (26.0-34.0); MEAN CORPUSCULAR VOLUME 87 fL (80-100); MONOCYTES # (AUTO) 0.3 K/uL (0.1-1.0); NEUTROPHILS # (AUTO) 1.3 K/uL (1.8-7.7); NEUTROPHILS % (AUTO) 45.7 % (40.0-70.0); PLATELET COUNT (AUTO) 309 K/uL (150-450); RED BLOOD CELL COUNT(AUTO) 3.91 MIL/uL (4.00-5.20); RED CELL DISTRIBUTION WIDTH 15.6 % (11.5-14.5)
[2022-04-09] MEDS: FOLIC ACID 1 MG TABLET PO SCH (09:28)
[2022-04-09] MEDS: LORazepam 2 MG TABLET PO PRN (09:28)
[2022-04-09] MEDS: ESCITALOPRAM OXALATE 10 MG TABLET PO SCH (09:28)
[2022-04-09] MEDS: MUPIROCIN CALCIUM 2% 22 GM OINTMENT NASAL SCH ×2 (09:28→16:06)
[2022-04-09] MEDS: QUEtiapine FUMARATE 200 MG TABLET PO SCH ×2 (09:28→20:11)
[2022-04-09] MEDS: CEPHALEXIN MONOHYDRATE 500 MG CAPSULE PO SCH ×3 (09:28→16:06)
[2022-04-09 13:08] VITALS: BP 119/76
[2022-04-09 17:24] VITALS: BP 104/64
[2022-04-10 00:46] VITALS: BP 110/67
[2022-04-10] MEDS: FERROUS SULFATE 325 MG EC TABLET PO SCH ×4 (06:23→20:26)
[2022-04-10] MEDS: QUEtiapine FUMARATE 200 MG TABLET PO SCH ×2 (08:12→20:26)
[2022-04-10] MEDS: FOLIC ACID 1 MG TABLET PO SCH (08:12)
[2022-04-10] MEDS: MUPIROCIN CALCIUM 2% 22 GM OINTMENT NASAL SCH ×2 (08:13→16:12)
[2022-04-10 08:25] VITALS: BP 90/57
[2022-04-10] MEDS: ESCITALOPRAM OXALATE 10 MG TABLET PO SCH (09:08)
[2022-04-10] MEDS: LORazepam 2 MG TABLET PO PRN (12:00)
[2022-04-10 17:01] VITALS: BP 109/69
[2022-04-11] MEDS: FERROUS SULFATE 325 MG EC TABLET PO SCH ×2 (06:22→12:53)
[2022-04-11 07:09] VITALS: BP 112/62
[2022-04-11] MEDS: MUPIROCIN CALCIUM 2% 22 GM OINTMENT NASAL SCH (08:03)
[2022-04-11] MEDS: QUEtiapine FUMARATE 200 MG TABLET PO SCH (08:04)
[2022-04-11] MEDS: LORazepam 2 MG TABLET PO PRN (08:04)
[2022-04-11] MEDS: FOLIC ACID 1 MG TABLET PO SCH (08:04)
[2022-04-11] MEDS: ESCITALOPRAM OXALATE 10 MG TABLET PO SCH (08:04)
[2022-04-11 08:08] VITALS: BP 107/61
[2022-04-11] MEDS ORDERED: ESCI10 PO (12:35)
[2022-04-11] MEDS ORDERED: QUET200T30 PO (12:35)
== END 2022-04-11 14:00 | disposition left against medical advice (07) | DRG 885 ==
LOC: EMS 22:43 → B2S 04-05 03:05 → B3A 04-05 05:45
PROVIDERS: ADMIT Psychiatry & Neurology Child & Adolescent Psychiatry; ATTEND Psychiatry & Neurology Child & Adolescent Psychiatry
DX: F25.1 Schizoaffective disorder, depressive type (principal); R45.851 Suicidal ideations; Z68.44 Body mass index [BMI] 60.0-69.9, adult; F17.200 Nicotine dependence, unspecified, uncomplicated; F15.10 Other stimulant abuse, uncomplicated; I10 Essential (primary) hypertension; E66.01 Morbid (severe) obesity due to excess calories; D64.9 Anemia, unspecified; Z20.822 Contact with and (suspected) exposure to COVID-19; Z53.29 Procedure and treatment not carried out because of patient's decision for other reasons; F10.20 Alcohol dependence, uncomplicated; Y90.9 Presence of alcohol in blood, level not specified; F41.9 Anxiety disorder, unspecified; I95.9 Hypotension, unspecified; Z91.19 Patient's noncompliance with other medical treatment and regimen; Z71.41 Alcohol abuse counseling and surveillance of alcoholic; Z71.51 Drug abuse counseling and surveillance of drug abuser
CPT/HCPCS: 81001; 85025; 87081; 87086; 99285

== ENCOUNTER 2023-02-10 12:28 | Inpatient (IN) | payer BC, MEDICAID ==
[~2023-02-10] VITALS: Ht 165.1 cm; Wt 102.9 kg
[~2023-02-10 12:28] MED LIST changes: +ESCI10 PO; -FERR325T27 PO; -FOLI-130 PO; +QUET200T30 PO
[2023-02-10 15:16] LABS: BASOPHILS % (AUTO) 0.8 % (0.0-2.0); EOSINOPHILS % (AUTO) 1.5 % (1.0-6.0); HEMATOCRIT 35.8 % (36-46); HEMOGLOBIN 11.6 g/dL (12.0-16.0); LYMPHOCYTES # (AUTO) 1.6 K/uL (1.0-4.8); LYMPHOCYTES % (AUTO) 31.7 % (22.0-44.0); MEAN CORPUSCULAR HEMOGLOBIN 27.2 pg (26.0-34.0); MEAN CORPUSCULAR HGB CONC 32.3 G/dL (31.0-37.0); MEAN CORPUSCULAR VOLUME 84 fL (80-100); MONOCYTES # (AUTO) 0.5 K/uL (0.1-1.0); MONOCYTES % (AUTO) 9.2 % (2.0-9.0); NEUTROPHILS # (AUTO) 2.8 K/uL (1.8-7.7); NEUTROPHILS % (AUTO) 56.8 % (40.0-70.0); PLATELET COUNT (AUTO) 324 K/uL (150-450); RED BLOOD CELL COUNT(AUTO) 4.26 MIL/uL (4.00-5.20); RED CELL DISTRIBUTION WIDTH 16.2 % (11.5-14.5)
[2023-02-10 15:26] LABS: ANION GAP 7 mmol/L (8-16); CALCIUM, TOTAL 8.7 mg/dL (8.8-10.5); CARBON DIOXIDE 28 mmol/L (22-29); CHLORIDE 102 mmol/L (98-107); GLOMERULAR FILTR. RATE CALC 41 mL/min (>60); GLUCOSE,RANDOM 94 mg/dL (70-110); POTASSIUM 4.2 mmol/L (3.5-5.1); SODIUM SERUM 137 mmol/L (136-145); UREA NITROGEN, BLOOD 35 mg/dL (7-18)
[2023-02-10] MEDS ORDERED: QUEtiapine FUMARATE 100 MG TABLET PO ONE (15:30)
[2023-02-10 15:31] LABS: ALANINE AMINOTRANSFERASE 23 U/L (12-78); ALBUMIN 3.5 g/dL (3.4-5.0); ALKALINE PHOSPHATASE 84 U/L (46-116); ASPARTATE AMINOTRANSFERASE 18 U/L (15-37); BILIRUBIN,TOTAL 0.3 mg/dL (0.1-1.0); TOTAL PROTEIN, SERUM 7.5 g/dL (6.4-8.2)
[2023-02-10 15:48] LABS: COVID AG,FIA SOURCE NASOPHARYNGEAL
[2023-02-10 18:21] VITALS: BP 126/83
[2023-02-10 20:59] VITALS: BP 120/68
[2023-02-10] MEDS: LORazepam 2 MG TABLET PO PRN (23:31)
[2023-02-10] MEDS: HALOPERIDOL 5 MG TABLET PO PRN (23:31)
[2023-02-10] MEDS: ZOLPIDEM TARTRATE 10 MG TABLET PO PRN (23:52)
[2023-02-11 08:09] VITALS: BP 113/65
[2023-02-11] MEDS: ESCITALOPRAM OXALATE 10 MG TABLET PO SCH (11:15)
[2023-02-11] MEDS: QUEtiapine FUMARATE 200 MG TABLET PO SCH ×2 (11:15→20:19)
[2023-02-11] MEDS: LORazepam 2 MG TABLET PO PRN ×2 (14:59→23:42)
[2023-02-11] MEDS: HALOPERIDOL 5 MG TABLET PO PRN (14:59)
[2023-02-11 16:07] VITALS: BP 133/53
[2023-02-11] MEDS: ZOLPIDEM TARTRATE 10 MG TABLET PO PRN (23:42)
[2023-02-12] MEDS: QUEtiapine FUMARATE 200 MG TABLET PO SCH ×2 (10:29→20:47)
[2023-02-12] MEDS: ESCITALOPRAM OXALATE 10 MG TABLET PO SCH (10:29)
[2023-02-12] MEDS: LORazepam 2 MG TABLET PO PRN (20:47)
[2023-02-12] MEDS: HALOPERIDOL 5 MG TABLET PO PRN (21:37)
[2023-02-13 08:00] VITALS: BP 123/79
[2023-02-13] MEDS: QUEtiapine FUMARATE 200 MG TABLET PO SCH ×2 (08:20→20:43)
[2023-02-13] MEDS: ESCITALOPRAM OXALATE 10 MG TABLET PO SCH (08:20)
[2023-02-13] MEDS: HALOPERIDOL 5 MG TABLET PO PRN (18:42)
[2023-02-13] MEDS: LORazepam 2 MG TABLET PO PRN (18:42)
[2023-02-13 21:44] VITALS: BP 112/80
[2023-02-14] MEDS: ESCITALOPRAM OXALATE 10 MG TABLET PO SCH (09:00)
[2023-02-14] MEDS: QUEtiapine FUMARATE 200 MG TABLET PO SCH (09:00)
[2023-02-14] MEDS ORDERED: ESCI10 PO (10:12)
[2023-02-14] MEDS ORDERED: QUET200T30 PO (10:12)
== END 2023-02-14 12:00 | disposition home or self-care (01) | DRG 885 ==
LOC: EMS 12:31 → 3EC 17:24
PROVIDERS: ADMIT Psychiatry & Neurology Psychiatry; ATTEND Psychiatry & Neurology Psychiatry
DX: F25.1 Schizoaffective disorder, depressive type (principal); N17.9 Acute kidney failure, unspecified; R45.851 Suicidal ideations; I10 Essential (primary) hypertension; F15.10 Other stimulant abuse, uncomplicated; D64.9 Anemia, unspecified; F10.10 Alcohol abuse, uncomplicated; Y90.9 Presence of alcohol in blood, level not specified; Z20.822 Contact with and (suspected) exposure to COVID-19; Z91.83 Wandering in diseases classified elsewhere; Z79.899 Other long term (current) drug therapy; Z87.891 Personal history of nicotine dependence; Z91.51 Personal history of suicidal behavior; Z59.00 Homelessness unspecified
CPT/HCPCS: 80053; 85025; 99285; G0480

== ENCOUNTER 2024-09-03 23:55 | Inpatient (IN) | payer BC, MEDICAID ==
[~2024-09-03] VITALS: Ht 165.1 cm; Wt 110.0 kg
[~2024-09-03 23:55] MED LIST changes: -ESCI-8 PO; -QUET200T PO
[2024-09-04] VITALS (7 sets, daily range): BP systolic 118; BP diastolic 79; PULSE 96; RESP 17–19; TEMP 98; O2SAT 100
[2024-09-04 02:17] LABS: COVID AG,FIA SOURCE NASAL SWAB
[2024-09-04 02:19] LABS: BASOPHILS % (AUTO) 0.9 % (0.0-2.0); EOSINOPHILS % (AUTO) 7.3 % (1.0-6.0); HEMATOCRIT 34.7 % (36-46); HEMOGLOBIN 11.2 g/dL (12.0-16.0); LYMPHOCYTES # (AUTO) 1.5 K/uL (1.0-4.8); LYMPHOCYTES % (AUTO) 24.6 % (22.0-44.0); MEAN CORPUSCULAR HEMOGLOBIN 28.4 pg (26.0-34.0); MEAN CORPUSCULAR HGB CONC 32.3 G/dL (31.0-37.0); MEAN CORPUSCULAR VOLUME 88 fL (80-100); MONOCYTES # (AUTO) 0.5 K/uL (0.1-1.0); MONOCYTES % (AUTO) 8.5 % (2.0-9.0); NEUTROPHILS # (AUTO) 3.6 K/uL (1.8-7.7); NEUTROPHILS % (AUTO) 58.7 % (40.0-70.0); PLATELET COUNT (AUTO) 246 K/uL (150-450); RED BLOOD CELL COUNT(AUTO) 3.94 MIL/uL (4.00-5.20); RED CELL DISTRIBUTION WIDTH 17.6 % (11.5-14.5); WHITE BLOOD COUNT (AUTO) 6.2 K/uL (4.5-11.0)
[2024-09-04 02:38] LABS: SARS-COV2 (COVID) ANTIGEN,FIA Negative (Negative)
[2024-09-04 02:40] LABS: ANION GAP 9 mmol/L (8-16); CALCIUM, TOTAL 8.5 mg/dL (8.8-10.5); CARBON DIOXIDE 27 mmol/L (22-29); CHLORIDE 99 mmol/L (98-107); CREATININE 1.18 mg/dL (0.60-1.30); GLOMERULAR FILTR. RATE CALC 50 mL/min (>60); GLUCOSE,RANDOM 86 mg/dL (70-110); POTASSIUM 3.9 mmol/L (3.5-5.1); SODIUM SERUM 135 mmol/L (136-145); UREA NITROGEN, BLOOD 21 mg/dL (7-18)
[2024-09-04 02:58] LABS: ALCOHOL, BLOOD (SERUM) < 3 mg/dL (0-10)
[2024-09-04] MEDS ORDERED: LORazepam 2 MG TABLET PO PRN ×2 (04:15→10:30)
[2024-09-04] MEDS ORDERED: HALOPERIDOL 5 MG TABLET PO PRN (04:15)
[2024-09-04] MEDS ORDERED: ZOLPIDEM TARTRATE 10 MG TABLET PO PRN (04:15)
[2024-09-04] MEDS ORDERED: PNEUMOCOCCAL VACCINE POLYVALENT 0.5 ML SYRINGE [PPSV23] IM. ONE (06:30)
[2024-09-04] MEDS ORDERED: INFLUENZA VIRUS VACCINE TVS (6MO+) 2024-25/PF 45 MCG/0.5 ML SYRINGE IM. ONE (06:30)
[2024-09-04] MEDS ORDERED: CloNIDine HCL 0.1 MG TABLET PO PRN (07:45)
[2024-09-04] MEDS ORDERED: LOPERAMIDE HCL 2 MG CAPSULE PO PRN ×2 (10:30)
[2024-09-04] MEDS ORDERED: TUBERCULIN, PURIFIED PROTEIN DERIVATIVE 5 TU/0.1 ML SYRINGE ID ONE (10:30)
[2024-09-04] MEDS ORDERED: MAG HYDROX/ALUMINUM HYD/SIMETH ES 30 ML SUSPENSION UDCUP PO PRN (10:30)
[2024-09-04] MEDS ORDERED: MAGNESIUM HYDROXIDE SUSPENSION 30 ML UDCUP PO PRN (10:30)
[2024-09-04] MEDS ORDERED: PROMETHAZINE HCL 25 MG TABLET PO PRN (10:30)
[2024-09-04] MEDS ORDERED: HydrOXYzine PAMOATE 50 MG CAPSULE PO PRN (10:30)
[2024-09-04] MEDS: PALIPERIDONE PALMITATE 234 MG/1.5 ML SYRINGE IM ONE (12:12)
[2024-09-04] MEDS: CYANOCOBALAMIN 1,000 MCG/ML VIAL IM ONE (12:13)
[2024-09-04] MEDS: THIAMINE 100 MG TABLET PO SCH (17:00)
[2024-09-04] MEDS: OLANZapine 5 MG RAPDIS TABLET PO SCH (20:55)
[2024-09-04] MEDS: PRAZOSIN HCL 1 MG CAPSULE PO SCH (20:56)
[2024-09-04] MEDS: MELATONIN 5 MG TABLET PO SCH (20:56)
[2024-09-05] VITALS (9 sets, daily range): BP systolic 100–127; BP diastolic 52–82; PULSE 55–75; RESP 17–19; TEMP 97.2–97.9; O2SAT 97–98
[2024-09-05] MEDS: LORazepam 2 MG TABLET PO PRN (06:59)
[2024-09-05] MEDS: GuaiFENesin/D-METHORPHAN [SUGAR-FREE] 200-20MG/10 ML SYRUP UDCUP PO PRN (06:59)
[2024-09-05] MEDS ORDERED: LORazepam 2 MG TABLET PO PRN (07:00)
[2024-09-05] MEDS: MULTIVITAMINS WITH MINERALS, THERAPEUTIC TABLET PO SCH (08:59)
[2024-09-05] MEDS: FOLIC ACID 1 MG TABLET PO SCH (08:59)
[2024-09-05] MEDS: OMEGA-3/DHA/EPA/FISH OIL 1,000 MG CAPSULE PO SCH (08:59)
[2024-09-05] MEDS: FLUoxetine HCL 20 MG CAPSULE PO SCH (08:59)
[2024-09-05] MEDS ORDERED: LORazepam 2 MG TABLET PO SCH (09:00)
[2024-09-05] MEDS: NALTREXONE HCL 50 MG TABLET PO SCH (09:00)
[2024-09-05] MEDS ORDERED: BENZOCAINE/MENTHOL LOZENGE PO PRN (12:15)
[2024-09-05] MEDS: ACETAMINOPHEN 325 MG TABLET PO PRN (16:08)
[2024-09-05] MEDS ORDERED: MAALOX/LIDOCAINE/NYSTATIN SUSP 5 ML ORAL.SYG PO PRN (16:30)
[2024-09-05] MEDS: BENZOCAINE/MENTHOL LOZENGE PO SCH (17:37)
[2024-09-05] MEDS: OLANZapine 10 MG RAPDIS TABLET PO SCH (21:00)
[2024-09-05 23:41] LABS: GLUCOMETER DEV NAME(LOC) 3E.C; GLUCOSE,POINT OF CARE 133 MG/DL (70-110)
[2024-09-06] VITALS (8 sets, daily range): BP systolic 104–127; BP diastolic 53–79; PULSE 50–69; RESP 17–19; TEMP 96.9–97.5; O2SAT 97–99
[2024-09-06] MEDS: LORazepam 2 MG/ML VIAL IM ONE (03:31)
[2024-09-06] MEDS: HALOPERIDOL LACTATE 5 MG/ML VIAL IM ONE (03:32)
[2024-09-06] MEDS: DiphenhydrAMINE HCL 50 MG/ML VIAL IM ONE (03:32)
[2024-09-06] MEDS: BACITRACIN 0.9 GM PACKET OINTMENT TP ONE (03:32)
[2024-09-06] MEDS: LIDOCAINE 1% 10 ML VIAL SQ ONE (03:33)
[2024-09-06 12:16] LABS: HEMOGLOBIN A1C 5.4 % (3.8-5.6)
[2024-09-06 12:44] LABS: FREE T4 (FREE THYROXINE) 1.29 ng/dL (0.76-1.46); THYROID STIMULATING HORMONE 1.97 uIU/mL (0.36-3.74)
[2024-09-07] MEDS ORDERED: LORazepam 1 MG TABLET PO PRN (07:00)
[2024-09-07 08:35] VITALS: RESP 17
[2024-09-07 08:54] VITALS: BP 112/60; PULSE 62; RESP 18; TEMP 97.4; O2SAT 97
[2024-09-07] MEDS ORDERED: LORazepam 1 MG TABLET PO SCH (09:00)
[2024-09-07] MEDS: DIVALPROEX SODIUM 500 MG ER TABLET PO SCH (20:58)
[2024-09-07 22:16] VITALS: RESP 18
[2024-09-08 08:34] VITALS: BP 123/80; PULSE 67; RESP 18; TEMP 97.4; O2SAT 98
[2024-09-08] MEDS: PALIPERIDONE PALMITATE 156 MG/ML SYRINGE IM ONE (09:00)
[2024-09-08] MEDS: LORazepam 1 MG TABLET PO PRN (15:26)
[2024-09-08] MEDS: OLANZapine 5 MG RAPDIS TABLET PO PRN (15:26)
[2024-09-08 20:37] VITALS: RESP 18
[2024-09-09 09:18] VITALS: BP 133/76; PULSE 92; RESP 18; TEMP 97.5; O2SAT 98
[2024-09-09 20:09] VITALS: BP 113/82; PULSE 74; RESP 18; TEMP 97.3; O2SAT 95
[2024-09-10 12:12] VITALS: BP 139/104; PULSE 100; RESP 18; TEMP 97.3; O2SAT 100
[2024-09-10] MEDS ORDERED: OLAN10TA26 PO (14:18)
[2024-09-10] MEDS ORDERED: NALT50TA33 PO (14:18)
[2024-09-10] MEDS ORDERED: DIVA-153 PO (14:18)
[2024-09-10] MEDS ORDERED: OMEG100033 PO (14:18)
[2024-09-10] MEDS ORDERED: FLUO-418 PO (14:18)
[2024-09-10] MEDS ORDERED: MELA5TAB40 PO (14:18)
== END 2024-09-10 15:00 | disposition home or self-care (01) | DRG 885 ==
LOC: EMS 23:56 → 3EC 09-04 05:37
PROVIDERS: ADMIT Psychiatry & Neurology Psychiatry; ATTEND Psychiatry & Neurology Psychiatry
PROC: 0HQ1XZZ Repair Face Skin, External Approach (ICD-10-PCS; principal; 2024-09-04)
PROC: GZ56ZZZ Individual Psychotherapy, Supportive (ICD-10-PCS; 2024-09-04)
PROC: GZHZZZZ Group Psychotherapy (ICD-10-PCS; 2024-09-04)
PROC: GZ58ZZZ Individual Psychotherapy, Cognitive-Behavioral (ICD-10-PCS; 2024-09-04)
DX: F25.0 Schizoaffective disorder, bipolar type (principal); E87.1 Hypo-osmolality and hyponatremia; Z59.02 Unsheltered homelessness; R45.851 Suicidal ideations; F10.20 Alcohol dependence, uncomplicated; Z20.822 Contact with and (suspected) exposure to COVID-19; Y90.9 Presence of alcohol in blood, level not specified; F41.9 Anxiety disorder, unspecified; F43.10 Post-traumatic stress disorder, unspecified; D64.9 Anemia, unspecified; I10 Essential (primary) hypertension; S01.81XA Laceration without foreign body of other part of head, initial encounter; W18.39XA Other fall on same level, initial encounter; Y93.89 Activity, other specified; Y92.89 Other specified places as the place of occurrence of the external cause; Y99.8 Other external cause status; Z55.9 Problems related to education and literacy, unspecified; Z59.9 Problem related to housing and economic circumstances, unspecified; Z63.9 Problem related to primary support group, unspecified; Z65.3 Problems related to other legal circumstances
CPT/HCPCS: 70450; 72125; 80048; 82962; 83036; 84439; 84443; 84703; 85025; 86592; 87430; 99285; G0480; J1200; J1630; J2060; J3420; J3490